=== PATIENT | male | born 1955 | race Caucasian/White ===

== ENCOUNTER 2017-08-18 21:19 | Emergency (ER) | payer BC ==
[~2017-08-18] VITALS: Ht 165.1 cm; Wt 91.9 kg
[2017-08-18 21:29] VITALS: TEMP 36.5; Ht 165.1 cm; Wt 91.9 kg
[2017-08-18] MEDS ORDERED: SODIUM CHLORIDE 0.9% 1000ML 1,000 ML IV STA (22:06)
[2017-08-18 22:42] LABS: BUN/CREATININE RATIO 12.2 (10-20); CALCIUM 8.5 mg/dl (8.5-10.1); CREATININE 0.82 mg/dl (0.60-1.40); POTASSIUM 4.2 mmol/L (3.5-5.1)
[2017-08-18 22:53] LABS: BASO % 0.3 %; BASO ABS # 0.02 K/uL (0-0.2); COMPLETE YES; EOS % 3.6 %; HEMATOCRIT 48.1 % (42-52); IG% 0.2 %; LYMPH % 46.4 %; LYMPH ABS # 3.07 K/uL (1.2-3.4); MEAN CELL VOLUME 95.1 fL (80-100); MEAN CORPUSCULAR HEMOGLOBIN 32.8 pg (25-34); MEAN CORPUSCULAR HGB CONC 34.5 g/dl (32-36); MEAN PLATELET VOLUME 9.6 fL (7.4-10.4); MONO % 7.7 %; NEUT % 41.8 %; PLATELET COUNT 165 K/uL (130-400); RED BLOOD COUNT 5.06 M/uL (4.7-6.1); WHITE BLOOD COUNT 6.61 K/uL (4.8-10.8)
--- NOTE | 2017-08-18 23:05 | DIAGNOSTIC IMAGING REPORT ---
SINGLE VIEW CHEST CLINICAL HISTORY: Weakness. Change in mental status. FINDINGS: An AP, portable, upright chest radiograph is obtained. No prior studies are available for comparison at the time of dictation. The examination is degraded by portable technique and patient rotation. The heart is enlarged. The pulmonary vasculature is noncongested. The lungs and pleural spaces are clear. No pneumothorax is seen. There are healed right rib and right clavicular fractures. IMPRESSION: Cardiomegaly with no acute cardiopulmonary abnormality. Electronically signed by: Garland Hobbs M.D. 08/18/2017 11:04 PM Dictated Date/Time: 08/18/2017 11:03 PM
[2017-08-18 23:21] VITALS: O2SAT 94
--- NOTE | 2017-08-18 23:38 | EMERGENCY ROOM VISIT NOTE ---
History Report prepared by Tim: Delphine Rivas Under the Supervision of: Dr. Kuldip Paul D.O. 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 The patient states that he was drinking today. Per nursing staff, he was disorderly in a box at the [employer] [employer]. The patient states that he does not remember why he is here. HPI limited secondary to intoxication. Source of History: patient History Limited By: intoxication Onset: TIP PRINTER Position: other (global) Quality: other (alcohol intoxication) Timing: constant Review of Systems See HPI for pertinent positives & negatives. ROS limited secondary to intoxication. Past Medical & Surgical Medical Problems: (1) High cholesterol Family History No pertinent family history stated. Social History Smoking Status: Never Smoker Marital Status: Housing Status: lives with family Physical Exam Vital Signs Date Time Temp Pulse Resp B/P (MAP) Pulse Ox O2 Delivery O2 Flow Rate FiO2 08/18/17 23:46 82 18 99/73 97 08/18/17 23:21 94 Room Air 08/18/17 23:19 83 18 94 08/18/17 23:15 99/73 08/18/17 22:49 100 95 08/18/17 22:19 83 15 91 08/18/17 21:49 95 22 90 08/18/17 21:36 89 08/18/17 21:29 36.5 85 18 108/71 93 Room Air 08/18/17 21:22 108/71 Physical Exam CONSTITUTIONAL/VITAL SIGNS: Reviewed / noted above. GENERAL: Non-toxic in appearance. Smell of alcohol on his breath. INTEGUMENTARY: Warm, dry, and [place]. HEAD: Normocephalic. EYES: without scleral icterus or trauma. ENT/OROPHARYNX: clear and moist. LYMPHADENOPATHY/NECK: Is supple without lymphadenopathy or meningismus. RESPIRATORY: Lungs clear and equal. CARDIOVASCULAR: Regular rate and rhythm. GI/ABDOMEN: Soft and nontender. No organomegaly or pulsatile mass. No rebound or guarding. Normal bowel sounds. EXTREMITIES: Warm and well perfused. BACK: No CVA tenderness. NEUROLOGICAL: Intact without focal deficits. PSYCHIATRIC: normal affect. MUSCULOSKELETAL: Normally developed with good muscle tone. Medical Decision & Procedures ER Provider Diagnostic Interpretation: Radiology results as stated below per my review and radiologist interpretation: SINGLE VIEW CHEST FINDINGS: An AP, portable, upright chest radiograph is obtained. No prior studies are available for comparison at the time of dictation. The examination is degraded by portable technique and patient rotation. The heart is enlarged. The pulmonary vasculature is noncongested. The lungs and pleural spaces are clear. No pneumothorax is seen. There are healed right rib and right clavicular fractures. IMPRESSION: Cardiomegaly with no acute cardiopulmonary abnormality. Electronically signed by: Garland Hobbs M.D. 08/18/2017 11:04 PM Dictated Date/Time: 08/18/2017 11:[address] HEAD: No ICH, mass effect or edema. No evidence of acute cortical stroke. Mucosal thickening paranasal sinuses with opacification left anterior ethmoid air cells and frontal sinus. Laboratory Results 08/18/17 22:41 Red Blood Count 5.06, Mean Corpuscular Volume 95.1, Mean Corpuscular Hemoglobin 32.8, Mean Corpuscular Hemoglobin Concent 34.5, Mean Platelet Volume 9.6, Neutrophils (%) (Auto) 41.8, Lymphocytes (%) (Auto) 46.4, Monocytes (%) (Auto) 7.7, Eosinophils (%) (Auto) 3.6, Basophils (%) (Auto) 0.3, Neutrophils # (Auto) 2.76, Lymphocytes # (Auto) 3.07, Monocytes # (Auto) 0.51, Eosinophils # (Auto) 0.24, Basophils # (Auto) 0.02 08/18/17 22:08 Test 08/18/17 22:08 08/18/17 22:41 Anion Gap 8.0 mmol/L (3-11) Est Creatinine Clear Calc Drug Dose 97.3 ml/min Estimated GFR () 109.8 Estimated GFR (Non- 94.8 BUN/Creatinine Ratio 12.2 (10-20) Calcium Level 8.5 mg/dl (8.5-10.1) Ethyl Alcohol mg/dL 349.0 mg/dl (0-3) White Blood Count 6.61 K/uL (4.8-10.8) Red Blood Count 5.06 M/uL (4.7-6.1) Hemoglobin 16.6 g/dL (14.0-18.0) Hematocrit 48.1 % (42-52) Mean Corpuscular Volume 95.1 fL (80-100) Mean Corpuscular Hemoglobin 32.8 pg (25-34) Mean Corpuscular Hemoglobin Concent 34.5 g/dl (32-36) Platelet Count 165 K/uL (130-400) Mean Platelet Volume 9.6 fL (7.4-10.4) Neutrophils (%) (Auto) 41.8 % Lymphocytes (%) (Auto) 46.4 % Monocytes (%) (Auto) 7.7 % Eosinophils (%) (Auto) 3.6 % Basophils (%) (Auto) 0.3 % Neutrophils # (Auto) 2.76 K/uL (1.4-6.5) Lymphocytes # (Auto) 3.07 K/uL (1.2-3.4) Monocytes # (Auto) 0.51 K/uL (0.11-0.59) Eosinophils # (Auto) 0.24 K/uL (0-0.5) Basophils # (Auto) 0.02 K/uL (0-0.2) RDW Standard Deviation 45.2 fL (36.4-46.3) RDW Coefficient of Variation 13.1 % (11.5-14.5) Immature Granulocyte % (Auto) 0.2 % Immature Granulocyte # (Auto) 0.01 K/uL (0.00-0.02) Troponin I < 0.015 ng/ml (0-0.045) Laboratory results as stated above per my review. ECG Indication: other Rate (beats per minute): 76 Rhythm: normal sinus Findings: no acute ischemic change, no ectopy ED Course 2153: Previous medical records were reviewed. The patient was evaluated in room C2B. A complete history and physical examination was performed. 2206: Sodium Chloride 1000 ml @ 999 mls/hr IV. 2340: On reevaluation, the patient is doing well. I discussed the results and findings with the patient. He verbalized agreement of the treatment plan. The patient was discharged home. Medical Decision There is no evidence of other toxic ingestions, trauma, anemia, hypoglycemia, head injury or intracranial pathology, meningitis, encephalitis, acute intrathoracic or abdominal pathology or other metabolic condition. This is a 62-year-old male who presents to the ED with a chief complaint of alcohol intoxication. The patient presented via EMS after he had been a [place] in [place] box [place]. The patient admits to drinking alcohol tonight. He denies any other specific complaints. The patient 's blood alcohol level tonight was 349. This is a 10 PM. The patient's blood work otherwise was unremarkable. Chest x-ray did not show acute disease. Troponin was negative. CT scan of the brain did not show acute process. The patient is awake, alert and cooperative here. The patient's friends who are sober came to the ED and are willing to take the patient with them. The patient is agreeable to this. They will keep an eye on him and not allow him to drive. The patient is not had any vomiting or other issues during his ED stay. He is felt to be stable for discharge with his sober friends who will observe him. Medication Reconcilliation Current Medication List: was personally reviewed by me Blood Pressure Screening Patient's blood pressure: Normal blood pressure Blood pressure disposition: Did not require urgent referral Impression Primary Impression: Alcohol use with intoxication Scribe Attestation The scribe's documentation has been prepared under my direction and personally reviewed by me in its entirety. I confirm that the note above accurately reflects all work, treatment, procedures, and medical decision making performed by me. Departure Information Dispostion Home / Self-Care Patient Instructions Alcohol Intoxication - [facility], [facility] Additional Instructions Avoid excessive consumption of alcohol. See your doctor for any concerns. Do not drive until noon tomorrow. Go to the nearest emergency department for any new or worsening symptoms.
[2017-08-18 23:46] VITALS: BP 99/73; PULSE 82; O2SAT 97
--- NOTE | 2017-08-19 06:19 | DIAGNOSTIC IMAGING REPORT ---
CT HEAD WITHOUT CONTRAST (CT) CLINICAL HISTORY: Altered mental status. Weakness. COMPARISON STUDY: No previous studies for comparison. TECHNIQUE: Axial CT of the brain is performed from the vertex to the skull base. IV contrast was not administered for this examination. A dose lowering technique was utilized adhering to the principles of ALARA. CT DOSE: 1228.53 mGy.cm FINDINGS: The study is mildly compromised secondary to patient motion. No intra or extra-axial mass lesions are visualized. There is no CT evidence of acute cortical infarction. There is no evidence of midline shift. There is no acute hemorrhage. No calvarial fractures are visualized. There are minimal white matter hypodensities likely on a small vessel basis. There is no evidence of pathologic ventricular dilatation. Inflammatory changes are present within the left frontal and left ethmoid sinuses. IMPRESSION: No acute intracranial findings Electronically signed by: John Croft M.D. 08/19/2017 6:18 AM Dictated Date/Time: 08/19/2017 6:17 AM
== END 2017-08-18 23:48 | disposition home or self-care (01) ==
LOC: EDBD 21:19 → C.EDC 21:20
DX: F10.129 Alcohol abuse with intoxication, unspecified (principal); Y90.8 Blood alcohol level of 240 mg/100 ml or more; E78.00 Pure hypercholesterolemia, unspecified